=== PATIENT | female | born 1980 | race Caucasian/White ===

== ENCOUNTER 2017-12-03 09:45 | Inpatient (IN) | payer MEDICAID ==
[2017-12-03] MEDS ORDERED: LACTATED RINGER'S 1,000 ML IV ×2 (12:47→14:42)
[2017-12-03] MEDS ORDERED: LIDOCAINE 1% (MPF) 30 ML INJ INJ (13:00)
[2017-12-03] MEDS ORDERED: CARBOPROST 250 MCG INJ IM (13:00)
[2017-12-03] MEDS ORDERED: MISOPROSTOL 200 MCG TAB PR (13:00)
[2017-12-03] MEDS ORDERED: METHYLERGONOVINE 0.2 MG INJ IM (13:00)
[2017-12-03] MEDS ORDERED: OXYTOCIN 30 UNITS/LR 500 ML IV (13:00)
[2017-12-03] MEDS: LACTATED RINGER'S 1,000 ML IV ×2 (13:14→21:00)
[2017-12-03 13:31] LABS: ADD MAN DIFF? NO
[2017-12-03 13:33] LABS: WHITE BLOOD COUNT 6.2 10^3/ul (4.8-10.8)
[2017-12-03 13:33] LABS: BASOPHIL # 0.1 10^3/ul (0.0-0.1); BASOPHILS % 0.8 % (0.0-2.0); EOSINOPHILS # 0.1 10^3/ul (0.0-0.5); EOSINOPHILS % 1.5 % (0.0-7.0); HEMATOCRIT 36.9 % (37.0-47.0); HEMOGLOBIN 12.2 g/dl (12.0-16.0); LYMPHOCYTES # 1.5 10^3/ul (0.8-2.9); LYMPHOCYTES % 23.5 % (15.0-51.0); MEAN CORPUSCULAR HEMOGLOBIN 27.5 pg (29.0-33.0); MEAN CORPUSCULAR HGB CONC 33.1 g/dl (32.0-37.0); MEAN CORPUSCULAR VOLUME 83.1 fl (82.0-101.0); MONOCYTE # 0.7 10^3/ul (0.3-0.9); MONOCYTES % 10.7 % (0.0-11.0); NEUTROPHIL # 3.8 10^3/ul (1.6-7.5); NEUTROPHILS % 61.9 % (39.0-77.0); PLATELET COUNT 300 10^3/UL (140-415); RED BLOOD COUNT 4.44 10^6/ul (4.20-5.40); RED CELL DISTRIBUTION WIDTH 13.5 % (11.5-14.5)
[2017-12-03 13:51] LABS: PROTIME 12.2 Sec (11.9-14.9)
[2017-12-03 13:52] LABS: PARTIAL THROMBOPLASTIN TIME 27.7 Sec (25.0-35.0)
[2017-12-03] MEDS: OXYTOCIN 30 UNITS/LR 500 ML IV ×2 (14:17→22:53)
[2017-12-03 15:45] LABS: RAPID PLASMA REAGIN NONREACTIVE (NR)
[2017-12-03] MEDS: DEXTROSE 5%-LR 1,000 ML IV (17:15)
[2017-12-03] MEDS: BUTORPHANOL 2 MG INJ IV (19:38)
[2017-12-03 21:17] LABS: HEPATITIS B SURFACE ANTIGEN NEGATIVE (NEGATIVE)
[2017-12-03] MEDS ORDERED: FENTAnyl 2MCG/ML-ROPIV 0.2% 100 ML (21:24)
[2017-12-03] MEDS ORDERED: FENTAnyl 2MCG/ML-ROPIV 0.2% 100 ML BAG EPI (22:30)
[2017-12-03] MEDS ORDERED: NALOXONE (0.4 MG/ML) INJ IV (22:30)
[2017-12-03] MEDS ORDERED: morphine SULFATE/PF (10 MG/10 ML) INJ (22:59)
[2017-12-03] MEDS ORDERED: FENTAnyl 50 MCG/ML VIAL (22:59)
[2017-12-03] MEDS ORDERED: PHENYLephrine (100 MCG/ML) 5ML SYG (22:59)
[2017-12-04] MEDS: IBUPROFEN 600 MG TAB PO (00:30)
[2017-12-04] MEDS: OXYTOCIN 30 UNITS/LR 500 ML IV ×2 (01:00→05:40)
[2017-12-04] MEDS: LACTATED RINGER'S 1,000 ML IV* ×3 (01:22→17:22)
[2017-12-04] MEDS ORDERED: MISOPROSTOL 200 MCG TAB PR (01:30)
[2017-12-04] MEDS ORDERED: CARBOPROST 250 MCG INJ IM (01:30)
[2017-12-04] MEDS ORDERED: ZOLPIDEM 5 MG TAB PO ×2 (01:30→23:00)
[2017-12-04] MEDS ORDERED: OXYTOCIN 30 UNITS/LR 500 ML IV (01:30)
[2017-12-04] MEDS ORDERED: MAGNESIUM HYDROXIDE 30ML CUP PO (01:30)
[2017-12-04] MEDS ORDERED: METHYLERGONOVINE 0.2 MG INJ IM (01:30)
[2017-12-04] MEDS ORDERED: DIPHENHYDRAMINE 25 MG CAP PO (01:30)
[2017-12-04] MEDS: ACETAMINOPHEN 325 MG TAB PO (04:22)
[2017-12-04] MEDS: BENZOCAINE 20% 56 ML SPRAY TOP (04:23)
[2017-12-04] MEDS: WITCH HAZEL/GLYCERIN PAD PR (04:23)
[2017-12-04] MEDS: IBUPROFEN 800 MG TAB PO ×4 (06:32→23:30)
[2017-12-04 07:54] LABS: ADD MAN DIFF? NO
[2017-12-04 07:56] LABS: WHITE BLOOD COUNT 7.5 10^3/ul (4.8-10.8)
[2017-12-04 07:56] LABS: BASOPHILS % 0.4 % (0.0-2.0); EOSINOPHILS # 0.1 10^3/ul (0.0-0.5); EOSINOPHILS % 0.8 % (0.0-7.0); HEMATOCRIT 34.8 % (37.0-47.0); HEMOGLOBIN 11.4 g/dl (12.0-16.0); LYMPHOCYTES # 1.5 10^3/ul (0.8-2.9); LYMPHOCYTES % 20.5 % (15.0-51.0); MEAN CORPUSCULAR HEMOGLOBIN 27.5 pg (29.0-33.0); MEAN CORPUSCULAR HGB CONC 32.8 g/dl (32.0-37.0); MEAN CORPUSCULAR VOLUME 83.9 fl (82.0-101.0); MEAN PLATELET VOLUME 10.2 fl (7.4-10.4); MONOCYTE # 0.8 10^3/ul (0.3-0.9); NEUTROPHIL # 5.1 10^3/ul (1.6-7.5); NEUTROPHILS % 67.4 % (39.0-77.0); PLATELET COUNT 260 10^3/UL (140-415); RED BLOOD COUNT 4.15 10^6/ul (4.20-5.40); RED CELL DISTRIBUTION WIDTH 13.4 % (11.5-14.5)
[2017-12-04 11:02] LABS: HEMOGLOBIN A1C 5.9 % (0-5.9)
[2017-12-04] MEDS: SENNA/DOCUSATE NA (8.6MG/50MG) TAB PO (11:35)
[2017-12-04] MEDS: INFLUENZA VIRUS VACCINE 0.5 ML (DISPENSING) IM* (16:45)
[2017-12-04] MEDS ORDERED: HYDROCODONE/APAP (5/325) TAB PO (23:00)
[2017-12-05] MEDS: IBUPROFEN 800 MG TAB PO ×2 (05:35→11:13)
[2017-12-05] MEDS: VARICELLA VACCINE LIVE/PF 1,350 UNIT/0.5 ML ML SC* (08:54)
[2017-12-05] MEDS: MEASLES,MUMPS,RUBELLA VACCINE INJ SC* (08:54)
[2017-12-05] MEDS: LANOLIN 7 GM TUBE TOP (09:55)
[2017-12-05] MEDS: DIPHTH/TET/ACEL PERTUSS (ADULT) 0.5 ML VIAL IM* (10:28)
[2017-12-06] MEDS ORDERED: INFLUENZA VIRUS VACCINE 0.5 ML (DISPENSING) IM* (09:00)
== END 2017-12-05 16:10 | disposition home or self-care (01) | DRG 775 ==
LOC: OBT 09:45 → PP1 12-04 00:54 → L-D 09:45 → OBT 12:14 → L-D 12:02
PROVIDERS: Obstetrics & Gynecology
PROC: 10E0XZZ Delivery of Products of Conception, External Approach (ICD-10-PCS; principal; 2017-12-03)
DX: O80 Encounter for full-term uncomplicated delivery (principal); Z37.0 Single live birth; Z3A.39 39 weeks gestation of pregnancy
CPT/HCPCS: 62319; 76815; 76818; 82962; 83036; 85025; 85610; 85730; 86592; 86900; 86901; 87340; 90686; 90715; 90716; 99464